=== PATIENT | female | born 1965 | race Hispanic/Latino ===

== ENCOUNTER → 2019-11-10 | Day surgery (SDC) | payer BC, OTHER ==
[~2019-11-10] MED LIST: EMERGEN-C 1,01000 MG PO; ETOMIDATE 2 MG/ML 10 ML INJ IV ONE; GLUCOSAMINE1000 MG PO; HYOSCYAMINE 0.125 MG TAB ONE; LIDOCAINE HCL 2% LOCAL INJ 5 ML SDV VIAL INJ ONE; MAGNESIUM OXID400 MG PO; MULTI-VITAMIN1 EACH PO; OMEGA 3 1,0001 EACH PO; POTASSIUM99 M1 PO; PROPOFOL IV EMULSION 10 MG/ML 20 ML VIAL ONE; [UNRECOGNIZED DRUG - OTHER] PO
[2019-11-10 15:50] VITALS: BP 111/60
--- NOTE | 2019-11-10 19:01 | Operative Report ---
DATE OF PROCEDURE: 11/10/2019 SURGEON: Eren Pires MD PROCEDURE: Colonoscopy and polypectomy. INDICATIONS FOR COLONOSCOPY: Colorectal cancer screening, positive occult blood in stool. MEDICATIONS: The patient was done under MAC, please see anesthesiologist's note. PROCEDURE IN DETAIL: With the patient in left lateral decubitus position, flexible fiberoptic Olympus colonoscope was inserted into the rectum with ease and advanced all the way to the cecum. There was some retained stool within the colon, but visualization was fair. Focal nodularity was noted in the appendiceal orifice that was biopsied. The scope was then withdrawn slowly, mucosa overlying the ascending colon grossly appeared to be within normal limits. One polyp was hot snared from the transverse colon. Whatever was visualized, the mucosa overlying the descending, sigmoid and rectum grossly appeared to be within normal limits. The scope was then retroflexed into the distal rectum and small internal hemorrhoids were noted, none of which was actively bleeding. The scope was then straightened out, it was subsequently withdrawn. The patient tolerated the procedure well. IMPRESSION: 1. Suboptimal prep, but visualization was fair. 2. Focal nodularity, appendiceal orifice biopsied. 3. Transverse colon polyp, hot snared. 4. Internal hemorrhoids, none actively bleeding. PLAN: Follow up histology. Findings do not necessarily explain the patient's positive occult blood in stool, might benefit from an EGD and if negative a small bowel series. Eren Pires MD [facility] [place] /[id number] cc: JOSE Badillo [facility]
== END | disposition home or self-care (01) ==
LOC: OR 11:18
PROVIDERS: ATTEND Internal Medicine Gastroenterology
DX: K52.9 Noninfective gastroenteritis and colitis, unspecified (principal); D12.3 Benign neoplasm of transverse colon; K64.8 Other hemorrhoids; I45.10 Unspecified right bundle-branch block; Z01.810 Encounter for preprocedural cardiovascular examination; Z01.812 Encounter for preprocedural laboratory examination; Z11.59 Encounter for screening for other viral diseases; Z68.30 Body mass index [BMI] 30.0-30.9, adult
CPT/HCPCS: 45380; 45385; 93005; J2001; J2704; U0002